=== PATIENT | male | born 1935 | race Caucasian/White ===

== ENCOUNTER 2023-02-08 09:03 | Inpatient (IN) | payer MEDICARE, OTHER ==
[2023-02-08 13:23] VITALS: BMI 27.2
[2023-02-08] MEDS ORDERED: Polyethylene Glycol 3350 17 GM Packet PO PRN (13:44)
[2023-02-08] MEDS ORDERED: Ondansetron ODT 4 MG TAB PO PRN (13:44)
[2023-02-08] MEDS ORDERED: Acetaminophen 500 MG TAB PO PRN (13:44)
[2023-02-08] MEDS: metFORMIN 500 MG TAB PO SCH (17:17)
[2023-02-08] MEDS: VOLTAREN GEL TOP SCH ×2 (17:17→20:27)
[2023-02-08] MEDS: traZODone HCl 50 MG TAB PO SCH (20:27)
[2023-02-09 05:09] LABS: #Eosinphils 0.2 thou/uL (0.0-0.7); #Lymphocytes 2.1 thou/uL (1.20-3.40); #Monocytes 0.6 thou/uL (0.11-0.59); #Neutrophils 5.7 thou/uL (1.40-6.50); %Basophils 0.5 % (0.0-1.0); %Eosinophils 2.4 % (0.0-10.0); %Lymphocytes 24.1 % (21.0-51.0); %Monocytes 7.3 % (0.0-10.0); %Neutrophils 65.7 % (42.0-75.0); Hemoglobin 11.4 g/dL (14.0-18.0); Mean Corpuscular HGB CONC 31.5 g/dL (32.0-36.0); Mean Corpuscular Hemoglobin 27.4 pg (27.0-31.0); Mean Platelet Volume 5.9 fL (7.4-10.4); Platelet Count 298 10x3/uL (130-400); RBC Distribution Width 13.5 % (11.5-14.5); Red Blood Cell (RBC) Count 4.18 mill/uL (4.70-6.10); White Blood Cell (WBC) Count 8.7 10x3/uL (4.8-10.8)
[2023-02-09 05:23] LABS: ALT (SGPT) 64 U/L (8-55); AST (SGOT) 29 U/L (5-34); Albumin 3.4 g/dL (3.4-4.8); Alkaline Phosphatase 66 U/L (40-110); Anion Gap 12 mmol/L (10-20); BUN (Urea Nitrogen) 27 mg/dL (8.4-25.7); Bilirubin, Total 0.6 mg/dL (0.2-1.2); Calc. Creatinine Clearance 52 mL/min (70-130); Calcium 9.3 mg/dL (7.8-10.44); Carbon Dioxide 22 mmol/L (23-31); Chloride 109 mmol/L (98-107); Estimated GFR 57; Globulin 3.3 g/dL (2.4-3.5); Glucose 176 mg/dL (83-110); Potassium 5.1 mmol/L (3.5-5.1); Protein, Total 6.7 g/dL (5.8-8.1); Sodium 138 mmol/L (136-145)
[2023-02-09] MEDS ORDERED: Dextrose 5% in Water 1,000 ML IV PRN (08:17)
[2023-02-09] MEDS ORDERED: Dextrose 50% Abboject 50 ML SYRINGE SLOW IVP PRN (08:17)
[2023-02-09] MEDS: metFORMIN 500 MG TAB PO SCH ×2 (09:29→17:05)
[2023-02-09] MEDS: Atorvastatin Calcium 10 MG TAB PO SCH (09:30)
[2023-02-09] MEDS: Lisinopril 20 MG TAB PO SCH (09:30)
[2023-02-09] MEDS: Furosemide 40 MG TAB PO SCH (09:30)
[2023-02-09] MEDS: Colchicine 0.6 MG TAB PO SCH (09:30)
[2023-02-09] MEDS: Senokot S 8.6-50 MG TAB PO SCH (09:30)
[2023-02-09] MEDS: Allopurinol 100 MG TAB PO SCH (09:32)
[2023-02-09] MEDS: VOLTAREN GEL TOP SCH ×4 (09:33→21:38)
[2023-02-09] MEDS: Saccharomyces boulardii 250 MG CAP PO SCH (09:42)
[2023-02-09] MEDS: Aspirin Chewable 81 MG TAB PO SCH (09:42)
[2023-02-09] MEDS: HumaLOG 300 UNITS/3 ML VIAL SC PRN (12:33)
[2023-02-09] MEDS: traZODone HCl 50 MG TAB PO SCH (21:38)
[2023-02-10] MEDS: Saccharomyces boulardii 250 MG CAP PO SCH (08:52)
[2023-02-10] MEDS: metFORMIN 500 MG TAB PO SCH ×2 (08:52→17:12)
[2023-02-10] MEDS: Allopurinol 100 MG TAB PO SCH (08:53)
[2023-02-10] MEDS: Atorvastatin Calcium 10 MG TAB PO SCH (08:53)
[2023-02-10] MEDS: Furosemide 40 MG TAB PO SCH (08:53)
[2023-02-10] MEDS: Aspirin Chewable 81 MG TAB PO SCH (08:53)
[2023-02-10] MEDS: Senokot S 8.6-50 MG TAB PO SCH (08:54)
[2023-02-10] MEDS: Colchicine 0.6 MG TAB PO SCH (08:54)
[2023-02-10] MEDS: Lisinopril 20 MG TAB PO SCH (08:54)
[2023-02-10] MEDS: VOLTAREN GEL TOP SCH ×4 (08:57→21:07)
[2023-02-10] MEDS: HumaLOG 300 UNITS/3 ML VIAL SC PRN (12:20)
[2023-02-10] MEDS: traZODone HCl 50 MG TAB PO SCH (21:07)
[2023-02-11] MEDS: Aspirin Chewable 81 MG TAB PO SCH (08:42)
[2023-02-11] MEDS: Saccharomyces boulardii 250 MG CAP PO SCH (08:42)
[2023-02-11] MEDS: Atorvastatin Calcium 10 MG TAB PO SCH (08:43)
[2023-02-11] MEDS: metFORMIN 500 MG TAB PO SCH ×2 (08:43→17:07)
[2023-02-11] MEDS: Allopurinol 100 MG TAB PO SCH (08:43)
[2023-02-11] MEDS: Colchicine 0.6 MG TAB PO SCH (08:43)
[2023-02-11] MEDS: Lisinopril 20 MG TAB PO SCH ×2 (08:45→10:57)
[2023-02-11] MEDS: Furosemide 40 MG TAB PO SCH (08:46)
[2023-02-11] MEDS: Senokot S 8.6-50 MG TAB PO SCH (08:47)
[2023-02-11] MEDS: VOLTAREN GEL TOP SCH ×2 (08:47→11:34)
[2023-02-11] MEDS: Diclofenac 1% 100 GM GEL TP SCH ×3 (13:45→20:08)
[2023-02-11] MEDS: traZODone HCl 50 MG TAB PO SCH (20:08)
[2023-02-12] MEDS: Atorvastatin Calcium 10 MG TAB PO SCH (08:23)
[2023-02-12] MEDS: Lisinopril 20 MG TAB PO SCH (08:23)
[2023-02-12] MEDS: Furosemide 40 MG TAB PO SCH (08:23)
[2023-02-12] MEDS: Colchicine 0.6 MG TAB PO SCH (08:25)
[2023-02-12] MEDS: metFORMIN 500 MG TAB PO SCH ×2 (08:26→16:36)
[2023-02-12] MEDS: Allopurinol 100 MG TAB PO SCH (08:27)
[2023-02-12] MEDS: Senokot S 8.6-50 MG TAB PO SCH (08:30)
[2023-02-12] MEDS: Aspirin Chewable 81 MG TAB PO SCH (08:30)
[2023-02-12] MEDS: Saccharomyces boulardii 250 MG CAP PO SCH (08:30)
[2023-02-12] MEDS ORDERED: Diclofenac 1% 100 GM GEL TP SCH (09:00)
[2023-02-12] MEDS: Diclofenac 1% 100 GM GEL TP SCH ×4 (10:14→20:22)
[2023-02-12] MEDS ORDERED: Acetaminophen/Codeine 30-300mg Tablet PO PRN (17:26)
[2023-02-12] MEDS: traZODone HCl 50 MG TAB PO SCH (20:21)
[2023-02-13 05:09] VITALS: TEMP 97.7
[2023-02-13] MEDS: Atorvastatin Calcium 10 MG TAB PO SCH (09:26)
[2023-02-13] MEDS: Aspirin Chewable 81 MG TAB PO SCH (09:27)
[2023-02-13] MEDS: Furosemide 40 MG TAB PO SCH (09:27)
[2023-02-13] MEDS: Colchicine 0.6 MG TAB PO SCH (09:28)
[2023-02-13] MEDS: Allopurinol 100 MG TAB PO SCH (09:29)
[2023-02-13] MEDS: Lisinopril 20 MG TAB PO SCH (09:29)
[2023-02-13] MEDS: metFORMIN 500 MG TAB PO SCH (09:29)
[2023-02-13] MEDS: Saccharomyces boulardii 250 MG CAP PO SCH (09:30)
[2023-02-13] MEDS: Diclofenac 1% 100 GM GEL TP SCH ×2 (09:31→12:25)
[2023-02-13] MEDS: Senokot S 8.6-50 MG TAB PO SCH (09:39)
[2023-02-13 09:40] VITALS: BP 120/66
== END 2023-02-13 15:56 | DRG 948 ==
LOC: BURMED 12:30 → EDBD 12:30
PROVIDERS: ADMIT Family Medicine; ATTEND Family Medicine
DX: R53.1 Weakness (principal); I25.10 Atherosclerotic heart disease of native coronary artery without angina pectoris; E78.5 Hyperlipidemia, unspecified; N18.30 Chronic kidney disease, stage 3 unspecified; E11.22 Type 2 diabetes mellitus with diabetic chronic kidney disease; I12.9 Hypertensive chronic kidney disease with stage 1 through stage 4 chronic kidney disease, or unspecified chronic kidney disease; M10.9 Gout, unspecified; I49.5 Sick sinus syndrome; N28.89 Other specified disorders of kidney and ureter; N40.0 Benign prostatic hyperplasia without lower urinary tract symptoms; Z90.49 Acquired absence of other specified parts of digestive tract; Z98.49 Cataract extraction status, unspecified eye; Z98.890 Other specified postprocedural states; Z95.1 Presence of aortocoronary bypass graft; Z95.0 Presence of cardiac pacemaker
CPT/HCPCS: 36415; 36416; 80053; 85025; J1650; J1815